=== PATIENT | female | born 1935 | race Caucasian/White ===

== ENCOUNTER 2016-08-06 12:05 | Outpatient (CLI) | payer MEDICARE, OTHER | END 2016-08-06 12:06 | disposition home or self-care (01) | DX: R05 Cough (principal) ==

== ENCOUNTER 2016-11-12 10:29 | Outpatient (CLI) | payer MEDICARE, OTHER | END 2016-11-12 10:30 | disposition home or self-care (01) | DX: I10 Essential (primary) hypertension (principal); E78.2 Mixed hyperlipidemia; Z79.899 Other long term (current) drug therapy ==

== ENCOUNTER 2016-11-23 10:55 | Outpatient (CLI) | payer MEDICARE, OTHER | END 2016-11-23 10:56 | disposition home or self-care (01) | DX: R91.1 Solitary pulmonary nodule (principal) ==

== ENCOUNTER 2017-01-10 11:18 | Outpatient (CLI) | payer MEDICARE, OTHER ==
--- NOTE | 2017-01-11 08:17 | Mammography Report ---
DIGITAL BILATERAL SCREENING MAMMOGRAM: 01/10/2017 CLINICAL HISTORY: An 81-year-old female in for routine screening mammogram. Patient has a family hi story of breast cancer. Her mother had breast cancer in her 70s. Her sister had breast cancer in he r 50s. Patient has had no prior breast surgeries. COMPARISON: 09/19/2014, 09/05/2013 TECHNIQUE: Craniocaudad and oblique lateral views of each breast were obtained with [facility] digital mammography. FINDINGS: Heterogeneously dense breasts are noted bilaterally. There is a cluster of calcifications noted in the 10 o'clock position of the right breast 7-8 cm superolateral to the nipple. This clust er of calcifications has shown progression in the number of calcifications and density of the calcifi cations since preceding exams. Recommend patient return for magnification craniocaudad and mediolate ral views of the right breast for further evaluation. There are few additional scattered calcificati ons noted in the breasts, some of which are clustered. These show no change and continue to have a b enign appearance. No significant masses are detected in the breasts. IMPRESSION: A SMALL CLUSTER OF CALCIFICATIONS IS ONCE AGAIN NOTED IN THE 10 O'CLOCK POSITION OF THE RIGHT BREAST. THIS HAS SHOWN PROGRESSION COMPARED TO PRECEDING EXAMS. RECOMMEND PATIENT RETURN F OR MAGNIFICATION VIEWS OF THE RIGHT BREAST FOR FURTHER EVALUATION. BIRADS CATEGORY 0 - INCOMPLETE. NEEDS ADDITIONAL IMAGING EVALUATION. MAGNIFICATION VIEWS OF THE RIG HT BREAST ARE INDICATED. STANDARD QUALIFYING STATEMENTS 1. This examination was reviewed with the aid of Computer-Aided Detection (CAD). 2. A negative or benign imaging report should not delay biopsy if clinically suspicious findings are present. Consider surgical consultation if warranted. More than 5% of cancers are not identified by maria e weathers. 3. Dense breasts may obscure an underlying neoplasm. JOB #: [id number] EXT JOB #:[id number]
== END 2017-01-10 11:19 | disposition home or self-care (01) ==
LOC: DI 11:18
PROVIDERS: ATTEND Internal Medicine
DX: Z12.31 Encounter for screening mammogram for malignant neoplasm of breast (principal); R92.1 Mammographic calcification found on diagnostic imaging of breast; Z80.3 Family history of malignant neoplasm of breast
CPT/HCPCS: 77067

== ENCOUNTER 2017-01-24 13:42 | Outpatient (CLI) | payer MEDICARE, OTHER ==
--- NOTE | 2017-01-24 15:49 | Mammography Report ---
DIGITAL DIAGNOSTIC RIGHT MAMMOGRAM: 01/24/2017 CLINICAL INDICATION: Possible increase in calcifications right upper outer quadrant. TECHNIQUE: Right true lateral and spot magnification views. FINDINGS: The right breast again demonstrates heterogeneously dense fibroglandular parenchyma. The c alcifications in question appear coarse and typically benign on spot magnification views. No associat ed mass is identified. IMPRESSION: PROBABLE BENIGN RIGHT BREAST CALCIFICATIONS. RECOMMENDATION: DIAGNOSTIC RIGHT MAMMOGRAM IN SIX MONTHS, TO ASSURE STABILITY. BIRADS CATEGORY 3-PROBABLE BENIGN FINDINGS. STANDARD QUALIFYING STATEMENTS 1. This examination was reviewed with the aid of Computer-Aided Detection (CAD). 2. A negative or benign imaging report should not delay biopsy if clinically suspicious findings are present. Consider surgical consultation if warranted. More than 5% of cancers are not identified by i maging. 3. Dense breasts may obscure an underlying neoplasm. JOB #: [id number] EXT JOB #:[id number]
== END 2017-01-24 13:43 | disposition home or self-care (01) ==
LOC: DI 13:42
PROVIDERS: ATTEND Internal Medicine
DX: R92.8 Other abnormal and inconclusive findings on diagnostic imaging of breast (principal); R92.1 Mammographic calcification found on diagnostic imaging of breast

== ENCOUNTER 2017-02-09 16:41 | Outpatient (CLI) | payer MEDICARE, OTHER ==
--- NOTE | 2017-02-10 19:20 | XRAY Report ---
LUMBAR SPINE COMPLETE, AP, LATERAL, OBLIQUES, CONED-DOWN LATERAL VIEW OF L5-S1: 02/09/2017 CLINICAL HISTORY: Patient has back pain with right leg pain. FINDINGS: Surgical clips are seen in the right upper quadrant of the abdomen. This is the result of a prior cholecystectomy. Mild vascular calcification is noted in the abdominal aorta. Five nonrib-bearing lumbar-type vertebrae are seen. Significant disk space narrowing is noted at L5-S1. This is indicative of degenerative disk disease. Minimal spondylolisthesis is noted of L4 in relationship to L5. This most likely is the result of osteoarthritis of the facet joints. Mild disk space narrowing is noted at L2-3 and L3-4. Significant osteoarthritis of the facet joints is seen at L3-4, L4-5, and at L5- S1. Left hip shows a moderate degree of joint space narrowing. Right hip shows mild joint space narrowing. IMPRESSION: 1. OSTEOARTHRITIS OF THE LUMBAR SPINE. MOST PRONOUNCED CHANGE IS SEEN AT L5- S1 WITH SIGNIFICANT DISK SPACE NARROWING. 2. MINIMAL SPONDYLOLISTHESIS IS NOTED AT L4-5 RELATED TO OSTEOARTHRITIS OF THE FACET JOINTS. 3. MODERATE DEGREE OF OSTEOARTHRITIS IS NOTED INVOLVING THE LEFT HIP. MILD OSTEOARTHRITIS IS SEEN INVOLVING THE RIGHT HIP. 4. SURGICAL CLIPS ARE SEEN IN THE RIGHT UPPER QUADRANT OF THE ABDOMEN RELATED TO PRIOR CHOLECYSTECTOMY. 5. SIGNIFICANT OSTEOARTHRITIS IS SEEN AT THE FACET JOINTS AT L3-4, L4-5, AND L5 -S1. JOB #: [id number] EXT JOB #: [id number]
== END 2017-02-09 16:42 | disposition home or self-care (01) ==
LOC: DI 16:41
PROVIDERS: ATTEND Internal Medicine
DX: M47.896 Other spondylosis, lumbar region (principal); M47.897 Other spondylosis, lumbosacral region; M43.16 Spondylolisthesis, lumbar region; M16.0 Bilateral primary osteoarthritis of hip
CPT/HCPCS: 72110

== ENCOUNTER 2017-03-26 20:03 | Emergency (ER) | payer MEDICARE, OTHER ==
[2017-03-26 20:13] VITALS: BP 155/75
--- NOTE | 2017-03-26 21:54 | ED Physician Documentation ---
PD HPI LOWER EXT INJURY - Stated complaint Stated Complaint: GLF - LEG PX - Chief complaint Chief Complaint: Ext Problem - History obtained from History obtained from: Patient - History of Present Illness PD HPI LOW EXT INJURY LOCATION: Right, Left, Lower leg Type of injury: Other (abrasions to the B LE) Timing - onset: How many days ago (2) Timing - duration: Days (2) Timing - details: Abrupt onset Pain level max: 4 Pain level now: 3 Improved by: Nothing Worsened by: Moving, Palpating Associated symptoms: Swelling, Other (no drainage). No: Weakness, Numbness, Tingling, Discolored Contributing factors: No: Anticoagulated Similar symptoms before: Has not had sx before Recently seen: Not recently seen Review of Systems Constitutional: denies: Fever, Chills Skin: denies: Rash Musculoskeletal: denies: Neck pain, Back pain Neurologic: denies: Headache PD PAST MEDICAL HISTORY - Past Medical History Past Medical History: Yes Cardiovascular: Hypertension, High cholesterol, Murmur, Other Respiratory: None HEENT: None - Present Medications Home Medications: Ambulatory Orders Medication Instructions Recorded Confirmed Atorvastatin Calcium 1 tab PO DAILY 03/26/17 03/26/17 Valsartan [Diovan] 1 tab PO DAILY 03/26/17 03/26/17 amLODIPine [Norvasc] 1 tab PO DAILY 03/26/17 03/26/17 - Allergies Allergies/Adverse Reactions: Allergies Allergy/AdvReac Type Severity Reaction Status Date / Time acetaminophen [From Vicodin] Allergy Nausea Verified 03/26/17 20:14 azithromycin Allergy Nausea Verified 03/26/17 20:14 codeine Allergy Unknown Verified 03/26/17 20:14 hydrocodone bitartrate * Allergy Nausea Verified 03/26/17 20:14 [From Vicodin] moxifloxacin HCl * Allergy Nausea Verified 03/26/17 20:14 [From Avelox] stimulants Allergy Unknown Uncoded 03/26/17 20:14 - Living Situation Living Situation: reports: With family Living Arrangement: reports: At home - Social History Does the pt have substance abuse?: No - Immunizations Immunizations are current?: Yes Immunizations: TDAP current <10years PD ED PE NORMAL - Vitals Vital signs reviewed: Yes - General General: Alert and oriented X 3, No acute distress - Derm Derm: Warm and dry - Extremities Extremities: Other (Abrasions present to the bilateral lower extremities. No evidence of infection. ) - Neuro Neuro: Alert and oriented X 3 - Psych Psych: Normal mood, Normal affect Results - Vitals Vitals: Vital Signs - 24 hr 03/26/17 20:09 Temperature 36.2 C L Heart Rate 83 Respiratory 16 Rate Blood Pressure 155/75 H O2 Saturation 97 Oxygen O2 Source Room air PD MEDICAL DECISION MAKING - ED course Complexity details: considered differential, d/w patient ED course: Patient is an 81-year-old female who presents to the emergency department with abrasions to the bilateral lower extremities. No evidence of infection. Wounds were cleansed and bandaged. We will continue supportive care and follow- up with her doctor. Patient counseled regarding signs and symptoms for which I believe and urgent re-evaluation would be necessary. Patient with good understanding of and agreement to plan and is comfortable going home at this time This document was made in part using voice recognition software. While efforts are made to proofread this document, sound alike and grammatical errors may occur. Departure - Departure Disposition: 01 Home, Self Care Clinical Impression: Abrasions of multiple sites Condition: Good Instructions: ED Abrasion Follow-Up: Daniel Kennedy MD [Primary Care Provider] - Within 1 week (for wound check) Comments: There doesn't appear to be any infection tonight. Return if you worsen. You can continue the antibiotic ointment at home. Discharge Date/Time: 03/26/17 22:07
== END 2017-03-26 22:07 | disposition home or self-care (01) ==
LOC: ED 20:03
DX: S80.812A Abrasion, left lower leg, initial encounter (principal); S80.811A Abrasion, right lower leg, initial encounter; W18.30XA Fall on same level, unspecified, initial encounter; I10 Essential (primary) hypertension
CPT/HCPCS: 99282; 99283

== ENCOUNTER 2017-04-30 09:38 | Outpatient (CLI) | payer MEDICARE, OTHER ==
--- NOTE | 2017-05-01 09:08 | MRI Report ---
EXAM: MRI LUMBAR SPINE WITHOUT CONTRAST EXAM DATE: 04/30/2017 11:05 AM. CLINICAL HISTORY: Worsening right thigh and leg pain. Low back pain. COMPARISON: No prior MRI. TECHNIQUE: Multiplanar, multisequence T1-weighted and fluid-sensitive sequences of the lumbar spine f rom T12 to S1 without contrast. Other: None. FINDINGS: Spinal Cord: The conus terminates at L1-L2. No signal abnormality in the visualized spinal cord. Alignment: Minimal degenerative subluxations including slight retrolisthesis of L2 on L3, minimal ant erolisthesis of L4 on L5 and slight retrolisthesis of L5 on S1. There is also a minimal leftward conv ex asymmetric mid to upper lumbar curve. No significant alignment change as compared to previous conv entional radiographs of the lumbar spine from 02/09/2017. Bone Marrow: Five ron-mvl-fwccctf lumbar vertebral bodies are assumed. Vertebral body heights are jenny ntained. No acute marrow edema. Mild degenerative endplate signal changes inferiorly at T11. Disk Levels/Facets: T12-L1: Unremarkable. L1-L2: Mild facet arthropathy. Otherwise unremarkable, no stenosis, disk herniation or significant di sk space narrowing. L2-L3: Mild degenerative disk disease and facet arthropathy. No focal disk extrusion or significant s tenosis. L3-L4: Mild degenerative disk disease. Shallow broad-based disk bulge. Patent central canal and left foramen. Minimal foraminal narrowing on the right without evidence for nerve root compression. L4-L5: Minimal to mild degenerative disk disease. Moderately prominent facet arthropathy. Shallow bro ad-based disk bulge. Minimal to mild subarticular zone stenosis on the right without nerve root compr ession. Patent foramina and central canal. L5-S1: Moderate degenerative disk disease. Mild facet arthropathy. Left subarticular zone moderate to marked stenosis from asymmetric left side disk herniation with accompanying osteophytic spurring. Mi ld posterior left S1 nerve root sleeve displacement without definite compression. Patent central lluvia l and right foramen. Moderate left foraminal stenosis. Musculature: Moderately prominent diffuse posterior paraspinal muscle fatty atrophy. Other: The visualized pelvic cavity is unremarkable. IMPRESSION: 1. Lumbar degenerative stenosis is most prominent at the L5-S1 level involving the left subarticular and left foraminal zones from a combination of facet arthropathy and asymmetric left posterior disk h erniation with osteophyte. 2. Additional chronic-appearing multilevel degenerative lumbar spine changes are present without othe r evidence for significant appearing stenosis or nerve root impingement. Comment: The following findings are so common in adults without low back pain that while we report th eir presence, they must be interpreted with caution and in the context of the clinical situation. (Re sulaiman Li et al, Spine 2001) Prevalence of findings in patients without low back pain: Disk degeneration (any evidence): 92% Disk desiccation/T2 signal loss: 83% Disk height loss: 56% Disk bulge: 64% Disk protrusion: 32% Annular tear/high intensity zone: 38% [facility] Referring Provider Line: [phone] SITE ID: [id number]
== END 2017-04-30 09:39 | disposition home or self-care (01) ==
LOC: DI 09:38
PROVIDERS: ATTEND Internal Medicine
DX: M51.36 Other intervertebral disc degeneration, lumbar region (principal); M47.896 Other spondylosis, lumbar region; M51.27 Other intervertebral disc displacement, lumbosacral region
CPT/HCPCS: 72148

== ENCOUNTER 2017-05-04 14:28 | Outpatient (CLI) | payer MEDICARE, OTHER ==
--- NOTE | 2017-05-05 08:52 | XRAY Report ---
RIGHT HIP AND PELVIS: 05/04/2017 CLINICAL INDICATION: Leg pain. FINDINGS: Frontal view of the hips and pelvis and frogleg lateral view of the right hip demonstrate mild osteoarthritis. There is no evidence of fracture or dislocation. No radiopaque foreign body is seen in the soft tissues. IMPRESSION: MILD OSTEOARTHRITIS. JOB #: [id number] EXT JOB #:[id number]
== END 2017-05-04 14:29 | disposition home or self-care (01) ==
LOC: DI.S 14:28
PROVIDERS: ATTEND Internal Medicine
DX: M16.11 Unilateral primary osteoarthritis, right hip (principal)

== ENCOUNTER 2017-08-18 09:42 | Outpatient (CLI) | payer MEDICARE, OTHER ==
--- NOTE | 2017-08-18 19:51 | Mammography Report ---
DATE OF SERVICE: 08/18/2017 DIGITAL DIAGNOSTIC RIGHT MAMMOGRAM: 08/18/2017 CLINICAL INDICATION: Followup calcifications. TECHNIQUE: Right CC, MLO, true lateral, spot magnification views. COMPARISON: 01/24/2017, 01/10/2017, 09/19/2014, 09/05/2013. The right breast again demonstrates heterogeneously dense fibroglandular parenchyma. The calcifications in question, in the right upper outer quadrant, have coarsened in the interval. No associated mass or architectural distortion is seen. IMPRESSION: Probable benign coarsening calcifications in the right upper outer quadrant. RECOMMENDATIONS: Diagnostic bilateral mammogram in 6 months. ACR BIRADS 3, probable benign findings. STANDARD QUALIFYING STATEMENTS 1. This examination was reviewed with the aid of Computed-Aided Detection (CAD). 2. A negative or benign imaging report should not delay biopsy if clinically suspicious findings are present. Consider surgical consultation if warranted. More than 5% of cancers are not identified by imaging. 3. Dense breasts may obscure an underlying neoplasm. TD: 08/18/2017 20:50
== END 2017-08-18 09:43 | disposition home or self-care (01) ==
LOC: DI 09:42
PROVIDERS: ATTEND Internal Medicine
DX: R92.1 Mammographic calcification found on diagnostic imaging of breast (principal)

== ENCOUNTER 2017-12-12 08:00 | Outpatient (CLI) | payer MEDICARE, OTHER ==
[2017-12-12 15:08] LABS: BASOPHILS % (AUTO) 0.4 %; EOSINOPHILS # (AUTO) 0.2 10^3/uL (0.0-0.7); EOSINOPHILS % (AUTO) 3.1 %; HGB - HEMOGLOBIN 12.7 g/dL (12.0-16.0); LYMPHOCYTES % (AUTO) 28.2 %; MEAN CORPUSCULAR HEMOGLOBIN 32.6 pg (27.0-31.0); MEAN CORPUSCULAR HGB CONC 33.7 g/dL (32.0-36.0); MEAN CORPUSCULAR VOLUME 96.7 fL (81.0-99.0); MEAN PLATELET VOLUME 7.9 fL (7.9-10.8); MONOCYTES # (AUTO) 0.5 10^3/uL (0.0-1.0); MONOCYTES % (AUTO) 7.3 %; NEUTROPHILS # (AUTO) 4.2 10^3/uL (1.5-6.6); PLT - PLATELET COUNT 329 10^3/uL (130-450); RED BLOOD COUNT 3.91 10^6/uL (4.20-5.40); RED CELL DISTRIBUTION WIDTH 13.5 % (12.0-15.0); WHITE BLOOD COUNT 6.9 x10^3/uL (4.8-10.8)
[2017-12-12 15:21] LABS: ALBUMIN 3.8 g/dL (3.2-5.5); ALBUMIN/GLOBULIN RATIO 1.1 (1.0-2.2); ALKALINE PHOSPHATASE 83 IU/L (42-121); ALT ALANINE AMINOTRANSFERASE 28 IU/L (10-60); AST ASPARTATE AMINOTRANSFERASE 25 IU/L (10-42); BILIRUBIN,TOTAL 0.4 mg/dL (0.2-1.0); BUN - BLOOD UREA NITROGEN 21 mg/dL (6-20); CARBON DIOXIDE - CO2 27 mmol/L (21-32); CHLORIDE 102 mmol/L (101-111); CHOL/HDL RATIO 2.9 (<4.4); CHOLESTEROL 183 mg/dL; CREATININE 0.5 mg/dL (0.4-1.0); GFR - MDRD 118 (>89); GLUCOSE 102 mg/dL (70-100); HDL CHOLESTEROL 63 mg/dL; LDL CHOLESTEROL,CALCULATED 103 mg/dL; LDL/HDL RATIO 1.6 (<4.4); SODIUM 136 mmol/L (135-145); TOTAL PROTEIN 7.2 g/dL (6.7-8.2); VLDL CHOLESTEROL 17 mg/dL
== END 2017-12-12 08:01 ==
LOC: LAB.R 08:00
PROVIDERS: ATTEND Internal Medicine
DX: E78.5 Hyperlipidemia, unspecified (principal); I10 Essential (primary) hypertension
CPT/HCPCS: 80053; 80061; 83721; 85025

== ENCOUNTER 2018-03-07 08:11 | Outpatient (CLI) | payer MEDICARE, OTHER | END 2018-03-07 08:12 | disposition home or self-care (01) | LOC: DI 08:11 | PROVIDERS: ATTEND Internal Medicine | DX: R07.89 Other chest pain (principal); R01.1 Cardiac murmur, unspecified; I44.7 Left bundle-branch block, unspecified | CPT/HCPCS: 93306 ==

== ENCOUNTER 2018-03-28 12:24 | Outpatient (CLI) | payer MEDICARE, OTHER ==
--- NOTE | 2018-03-28 14:51 | Mammography Report ---
Reason: ABN MAMMO Procedure Date: 03/28/2018 Accession Number: [id number] / [id number] Procedure: AYDIN - Diagnostic Dig Bilat CPT Code: FULL RESULT: EXAM: Diagnostic Dig Bilat DATE: 03/28/2018 1:40 PM CLINICAL HISTORY: Follow-up calcifications right breast. Left screening TECHNIQUE: Bilateral digital CC and MLO projections COMPARISON: 08/18/2017, 01/24/2017, 01/10/2017, 09/19/2014 and 09/05/2013 FINDINGS: The breast tissue is heterogeneously dense. The calcifications in the right breast have continued to increase in course and and may represent a calcifying fibroadenoma. On the left there is increasing scattered coarse calcifications. No dominant mass, skin thickening, or architectural distortion. IMPRESSION: Probably benign RECOMMENDATION: Follow-up bilateral mammography in 6 months. BIRADS CATEGORY 3: Probably benign STANDARD QUALIFYING STATEMENTS: 1. This examination was reviewed with the aid of Computer-Aided Detection (CAD). 2. A negative or benign imaging report should not delay biopsy if clinically suspicious findings are present. Consider surgical consultation if warrented. More than 5% of cancers are not identified by imaging. 3. Dense breasts may obscure an underlying neoplasm.
== END 2018-03-28 12:25 | disposition home or self-care (01) ==
LOC: DI 12:24
PROVIDERS: ATTEND Internal Medicine
DX: R92.1 Mammographic calcification found on diagnostic imaging of breast (principal)
CPT/HCPCS: 77066

== ENCOUNTER 2018-07-07 14:02 | Outpatient (CLI) | payer MEDICARE, OTHER ==
--- NOTE | 2018-07-10 19:00 | DEXA Report ---
Reason: POSTMENOPAUSAL Procedure Date: 07/07/2018 Accession Number: [id number] / [id number] Procedure: DEX - Dexa Spine and/or Hip CPT Code: FULL RESULT: EXAM: Dexa Spine and/or Hip DATE: 07/07/2018 2:21 PM CLINICAL HISTORY: POSTMENOPAUSAL TECHNIQUE: Dual energy x-ray absorptiometry (DXA) was performed on a [employer]iga[employer] System. Regions measured are the AP Spine, femoral neck, and if needed forearm. COMPARISON: None. In accordance with the International Society for Clinical Densitometry (ISCD) guidelines, data from previous exams may be reanalyzed using current recommendations and techniques. This is done to allow a more accurate basis for comparison with the current study. FINDINGS: The data for the lumbar spine is as follows: BMD (g/cm/cm) T-SCORE Z-SCORE REGION L1 1.015 -1.0 0.3 L2 1.131 -0.6 0.6 L3 1.305 0.9 2.1 L4 1.282 0.7 1.9 TOTAL 1.182 0.0 1.2 NOTE: All evaluable vertebrae are used for classification The data for the hip is as follows: BMD (g/cm/cm) T-SCORE Z-SCORE REGION Neck 0.792 -1.8 0.0 TOTAL 0.849 -1.3 0.4 NOTE: The femoral neck or total proximal femur, whichever is lowest, is used for classification. IMPRESSION: THE WHO CLASSIFICATION BASED ON THE INTERNATIONAL REFERENCE STANDARD IS OSTEOPENIA. THE FRACTURE RISK IS INCREASED. RECOMMENDATION: Patients with diagnosis of osteoporosis or osteopenia should have regular bone mineral density assessment. For those eligible for Medicare, routine testing is allowed once every 2 years. Testing frequency can be increased for patients who have rapidly progressing disease or for those who are receiving medical therapy to restore bone mass. COMMENT: World Health Organization (WHO) definitions for osteoporosis and osteopenia: NORMAL BMD: T-score at -1.0 or higher, fracture risk is low OSTEOPENIA BMD: T-score between -1.0 and -2.5, fracture risk is increased. OSTEOPOROSIS BMD: T-score at -2.5 or lower, fracture risk is high. National Osteoporosis Foundation recommends: 1. Obtain adequate dietary calcium (at least 1200 mg per day) and vitamin D (400-800 international units per day). 2. Participate, as appropriate, in regular weightbearing and muscle-strengthening exercise. 3. Avoid tobacco use and reduce alcohol and caffeine intake. 4. For more detailed information see the website at www.NOF.org.
== END 2018-07-07 14:03 | disposition home or self-care (01) ==
LOC: DI 14:02
PROVIDERS: ATTEND Internal Medicine
DX: M85.88 Other specified disorders of bone density and structure, other site (principal)
CPT/HCPCS: 77080

== ENCOUNTER 2018-10-24 09:43 | Outpatient (CLI) | payer MEDICARE, OTHER ==
--- NOTE | 2018-10-24 10:54 | Mammography Report ---
Reason: ABNORMAL MAMMOGRAM Procedure Date: 10/24/2018 Accession Number: [id number] / [id number] Procedure: AYDIN - Diagnostic Dig Bilat CPT Code: FULL RESULT: EXAM: Diagnostic Dig Bilat DATE: 10/24/2018 10:42 AM CLINICAL HISTORY: Surveillance of right breast calcifications. No reported personal history of breast cancer. Family history breast cancer mother age 80 and sister age 65. TECHNIQUE: (B) - Bilateral Bilateral CC and MLO views were obtained. Additional coned magnified CC and ML views right upper outer breast. Bilateral 90 degree 2-D 3-D. COMPARISON: 03/28/2018 through 09/05/2013 FINDINGS: Right breast: There is a stable 10 mm grouping of early popcorn type calcification in the 9:00 breast posterior middle depth representing finding under surveillance. There has been little interval change since 2017 and finding is similar to other calcifications in the contralateral breast. Otherwise, there are no suspicious masses, calcifications or areas of distortion. Left breast: Stable central benign popcorn type calcification. Stable oval mass with calcification in the medial breast consistent with degenerating fibroadenoma. No suspicious masses, microcalcifications, or areas of architectural distortion are identified. PARENCHYMAL PATTERN: (D) - The breasts demonstrate heterogeneously dense fibroglandular parenchyma bilaterally. 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 Benign. BI-RADS Category 2. Recommend return to annual screening mammography. Left breast: Benign. BI-RADS Category 2. Recommend annual screening mammography. RECOMMENDATION: (ANNUAL) - Recommend routine annual screening mammography. BI-RADS CATEGORY: (2) - Benign Findings STANDARD QUALIFYING STATEMENTS: 1. This examination was not reviewed with the aid of Computer-Aided Detection (CAD). 2. A negative or benign imaging report should not preclude biopsy if clinically suspicious findings are present. 3. Dense breasts may obscure an underlying neoplasm. 4. This examination was reviewed with the aid of 3D breast imaging (tomosynthesis).
== END 2018-10-24 09:44 | disposition home or self-care (01) ==
LOC: DI 09:43
PROVIDERS: ATTEND Family Medicine
DX: R92.1 Mammographic calcification found on diagnostic imaging of breast (principal)
CPT/HCPCS: 77066

== ENCOUNTER 2019-01-23 08:20 | Outpatient (CLI) | payer MEDICARE, OTHER ==
[2019-01-23 10:58] LABS: BASOPHILS % (AUTO) 0.5 %; EOSINOPHILS # (AUTO) 0.2 10^3/uL (0.0-0.7); EOSINOPHILS % (AUTO) 3.2 %; HGB - HEMOGLOBIN 12.6 g/dL (12.0-16.0); LYMPHOCYTES # (AUTO) 1.7 10^3/uL (1.5-3.5); LYMPHOCYTES % (AUTO) 26.4 %; MEAN CORPUSCULAR HEMOGLOBIN 32.5 pg (27.0-31.0); MEAN CORPUSCULAR HGB CONC 32.6 g/dL (32.0-36.0); MEAN CORPUSCULAR VOLUME 99.7 fL (81.0-99.0); MEAN PLATELET VOLUME 9.6 fL (7.9-10.8); MONOCYTES # (AUTO) 0.5 10^3/uL (0.0-1.0); MONOCYTES % (AUTO) 6.9 %; NEUTROPHILS # (AUTO) 4.1 10^3/uL (1.5-6.6); NEUTROPHILS % (AUTO) 62.7 %; PLT - PLATELET COUNT 334 10^3/uL (130-450); RED BLOOD COUNT 3.88 10^6/uL (4.20-5.40); RED CELL DISTRIBUTION WIDTH 12.9 % (12.0-15.0); WHITE BLOOD COUNT 6.6 x10^3/uL (4.8-10.8)
[2019-01-23 11:16] LABS: ALBUMIN 3.8 g/dL (3.2-5.5); ALBUMIN/GLOBULIN RATIO 1.1 (1.0-2.2); ALKALINE PHOSPHATASE 68 IU/L (42-121); ALT ALANINE AMINOTRANSFERASE 23 IU/L (10-60); AST ASPARTATE AMINOTRANSFERASE 24 IU/L (10-42); BILIRUBIN,TOTAL 0.6 mg/dL (0.2-1.0); BUN - BLOOD UREA NITROGEN 13 mg/dL (6-20); CALCIUM 9.3 mg/dL (8.5-10.3); CARBON DIOXIDE - CO2 27 mmol/L (21-32); CHLORIDE 103 mmol/L (101-111); CHOL/HDL RATIO 3.3 (<4.4); CHOLESTEROL 202 mg/dL; CREATININE 0.5 mg/dL (0.4-1.0); GFR - MDRD 118 (>89); GLUCOSE 98 mg/dL (70-100); HDL CHOLESTEROL 61 mg/dL; LDL CHOLESTEROL,CALCULATED 110 mg/dL; LDL/HDL RATIO 1.8 (<4.4); SODIUM 140 mmol/L (135-145); TOTAL PROTEIN 7.2 g/dL (6.7-8.2); VLDL CHOLESTEROL 31 mg/dL
[2019-01-23 11:24] LABS: HB2 TOTAL 13.6 g/dL; HEMOGLOBIN A1C 0.51 g/dL; HEMOGLOBIN A1C % 5.6 % (4.6-6.2)
== END 2019-01-23 08:21 | disposition home or self-care (01) ==
LOC: LAB.S 08:20
PROVIDERS: ATTEND Family Medicine
DX: E78.5 Hyperlipidemia, unspecified (principal); I10 Essential (primary) hypertension
CPT/HCPCS: 36415; 80053; 80061; 83036; 83721; 84443; 85025

== ENCOUNTER 2019-12-22 09:59 | Emergency (ER) | payer MEDICARE, OTHER ==
--- NOTE | 2019-12-22 10:05 | ED Physician Documentation ---
PD HPI ABD PAIN - Stated complaint Stated Complaint: L RIGHT ABD PAIN - History obtained from History obtained from: Patient - History of Present Illness Timing - onset: How many days ago (few) Timing - duration: Days (few) Timing - details: Gradual onset (had been working in garden/lifting the day prior but no injury at that time. Onset pain gradual with worsening on movement and bending. Not completely relieved with rest.), Still present Quality: Aching, Stabbing, Pain Location: RLQ Radiation: Right flank Improved by: Laying still. No: Eating Worsened by: Moving, Position. No: Eating, Breathing, Palpation Associated symptoms: No: Fever, Nausea, Vomiting, Diarrhea, Constipation, Dysuria, Hematuria, Vaginal bleeding Similar symptoms before: Has not had sx before Recently seen: Not recently seen Review of Systems Constitutional: denies: Fever, Chills, Myalgias Nose: denies: Rhinorrhea / runny nose, Congestion Throat: denies: Sore throat Respiratory: denies: Cough GI: reports: Abdominal Pain. denies: Abdominal Swelling, Nausea, Vomiting, Constipation, Diarrhea : denies: Dysuria, Frequency, Hematuria, Discharge, Vaginal bleeding Skin: denies: Rash, Lesions Musculoskeletal: denies: Neck pain PD PAST MEDICAL HISTORY - Past Medical History Cardiovascular: Hypertension, High cholesterol, Murmur, Other Respiratory: None HEENT: None - Present Medications Home Medications: Ambulatory Orders Medication Instructions Recorded Confirmed Atorvastatin Calcium 1 tab PO DAILY 03/26/17 03/26/17 Valsartan [Diovan] 1 tab PO DAILY 03/26/17 03/26/17 amLODIPine [Norvasc] 1 tab PO DAILY 03/26/17 03/26/17 Aspirin Chewable [[place]ari 81 mg PO DAILY 12/22/19 12/22/19 Aspirin] Docusate Sodium 100 mg PO DAILY #20 capsule 12/22/19 Irbesartan 300 mg ORAL DAILY 12/22/19 12/22/19 Naproxen 375 mg PO BID #20 tablet 12/22/19 Ondansetron Odt [Zofran] 4 mg TL Q6H PRN #10 tablet 12/22/19 Oxycodone HCl/Acetaminophen 1 each PO Q6H PRN #10 tablet 12/22/19 [Percocet 5-325 mg Tablet] - Allergies Allergies/Adverse Reactions: Allergies Allergy/AdvReac Type Severity Reaction Status Date / Time acetaminophen [From Vicodin] Allergy Nausea Verified 12/22/19 10:23 azithromycin Allergy Nausea Verified 12/22/19 10:23 codeine Allergy Unknown Verified 12/22/19 10:23 hydrocodone bitartrate * Allergy Nausea Verified 12/22/19 10:23 [From Vicodin] moxifloxacin HCl * Allergy Nausea Verified 12/22/19 10:23 [From Avelox] stimulants Allergy Unknown Uncoded 12/22/19 10:23 - Social History Does the pt have substance abuse?: No - Immunizations Immunizations are current?: Yes Immunizations: TDAP current <10years PD ED PE NORMAL - Vitals Vital signs reviewed: Yes - General General: Alert and oriented X 3, No acute distress, Well developed/nourished - HEENT HEENT: Moist mucous membranes, Pharynx benign - Neck Neck: Supple, no meningeal sign, No adenopathy - Cardiac Cardiac: RRR, No murmur - Respiratory Respiratory: Clear bilaterally - Abdomen Abdomen: Normal bowel sounds, Soft, Non distended, No organomegaly, Other (tender RLQ and right lateral abd without percussion/rebound nor guarding. No rash nor redness. Not tender in vertebral area but some right CVA area. No hernias felt inguinal nor umbilical. ) - Female Female : Deferred - Rectal Rectal: Deferred - Back Back: No spinal TTP - Derm Derm: Normal color, Warm and dry - Extremities Extremities: No tenderness to palpate, Normal ROM s pain, No edema, No calf tenderness / cord - Neuro Neuro: Alert and oriented X 3, No motor deficit, Normal speech Results - Vitals Vitals: Oxygen O2 Source Room air - Labs Labs: Laboratory Tests 12/22/19 12/22/19 12/22/19 10:15 10:15 10:15 WBC 7.2 RBC 3.93 L Hgb 12.6 Hct 39.7 MCV 101.0 H MCH 32.1 H MCHC 31.7 L RDW 12.4 Plt Count 319 MPV 9.3 Neut # (Auto) 4.7 Lymph # (Auto) 1.8 [place] # (Auto) 0.5 Eos # (Auto) 0.1 Baso # (Auto) 0.0 Absolute Nucleated RBC 0.00 Nucleated RBC % 0.0 Sodium 138 Potassium 3.7 Chloride 102 Carbon Dioxide 27 Anion Gap 9.0 BUN 14 Creatinine 0.6 Estimated GFR (MDRD) 95 Glucose 104 H Calcium 9.6 Total Bilirubin 0.7 AST 21 ALT 24 Alkaline Phosphatase 78 Total Protein 7.5 Albumin 4.0 Globulin 3.5 Albumin/Globulin Ratio 1.1 Lipase 33 Urine Color YELLOW Urine Clarity CLEAR Urine pH 7.5 Ur Specific [place] 1.010 Urine Protein NEGATIVE Urine Glucose (UA) NEGATIVE Urine Ketones NEGATIVE Urine Occult Blood NEGATIVE Urine Nitrite NEGATIVE Urine Bilirubin NEGATIVE Urine Urobilinogen 0.2 (NORMAL) Ur Leukocyte Esterase NEGATIVE Ur Microscopic Review NOT INDICATED Urine Culture Comments NOT INDICATED - Rads (name of study) abd CT Radiology: Prelim report reviewed (normal appendix, no ureteral stones and normal kidneys. 3 cm cyst right ovary without free fluid - recommends U/S to better eval. ), See rad report limited pelvic U/S Radiology: Prelim report reviewed (normal flow to right ovary. No free fluid. 3 cm complex cyst right ovary; recommends 3 month repeat exam. ), See rad report PD MEDICAL DECISION MAKING - ED course Complexity details: considered differential (not clear the cause of the pain. She had been doing garden work and lifting the day prior so could be muscular pain. No rash of skin. CT and then US did not show acute cause. The ovarian cyst does not appear like it would be causing pain. Needs follow up. ), d/w patient Departure - Departure Disposition: 01 Home, Self Care Clinical Impression: Ovarian cyst, right, Abdominal pain of unknown etiology Condition: Stable Record reviewed to determine appropriate education?: Yes Instructions: ED Abdominal Pain Unkn Cause Follow-Up: Wild Canales MD [Primary Care Provider] - Prescriptions: Docusate Sodium 100 mg PO DAILY #20 capsule Naproxen 375 mg PO BID #20 tablet Ondansetron Odt [Zofran] 4 mg TL Q6H PRN #10 tablet PRN Reason: Nausea / Vomiting Oxycodone HCl/Acetaminophen [Percocet 5-325 mg Tablet] 1 each PO Q6H PRN #10 tablet PRN Reason: pain Comments: Stay well hydrated. Continue usual medications. This seems likely to be muscular pain on the side although there will be consideration of some inflammatory diverticulitis. No evidence for infectious diverticulitis based on your CT report and your appendix is normal as well and there is no kidney stones. They did find a cyst on your ovary which appears like a cyst on ultrasound and the recommendation is a repeat ultrasound imaging in 3 months to ensure its not changing or enlarging. This should be done through your primary care. For now have you take naproxen anti-inflammatory twice daily for the next week or so with food. To that add Tylenol if needed for pain or pain medicine for worse pain. Also use ondansetron if needed for nausea. Take docusate stool softener daily for the next week or 2 to ensure soft stools. Discharge Date/Time: 12/22/19 16:05
[2019-12-22 10:23] LABS: BILIRUBIN,URINE NEGATIVE (NEGATIVE); GLUCOSE, URINE (UA) NEGATIVE (NEGATIVE); KETONES,URINE (UA) NEGATIVE (NEGATIVE); LEUKOCYTE ESTERASE, URINE NEGATIVE (NEGATIVE); NITRITE,URINE NEGATIVE (NEGATIVE); OCCULT BLOOD,URINE NEGATIVE (NEGATIVE); PH,URINE 7.5 PH (5.0-7.5); PROTEIN,URINE NEGATIVE (NEGATIVE); UROBILINOGEN,URINE 0.2 (NORMAL) E.U./dL (NORMAL)
[2019-12-22 10:28] LABS: BASOPHILS % (AUTO) 0.3 %; EOSINOPHILS # (AUTO) 0.1 10^3/uL (0.0-0.7); EOSINOPHILS % (AUTO) 1.9 %; HGB - HEMOGLOBIN 12.6 g/dL (12.0-16.0); LYMPHOCYTES # (AUTO) 1.8 10^3/uL (1.5-3.5); LYMPHOCYTES % (AUTO) 24.6 %; MEAN CORPUSCULAR HEMOGLOBIN 32.1 pg (27.0-31.0); MEAN CORPUSCULAR HGB CONC 31.7 g/dL (32.0-36.0); MEAN PLATELET VOLUME 9.3 fL (7.9-10.8); MONOCYTES # (AUTO) 0.5 10^3/uL (0.0-1.0); MONOCYTES % (AUTO) 7.2 %; NEUTROPHILS # (AUTO) 4.7 10^3/uL (1.5-6.6); NEUTROPHILS % (AUTO) 65.7 %; PLT - PLATELET COUNT 319 10^3/uL (130-450); RED BLOOD COUNT 3.93 10^6/uL (4.20-5.40); RED CELL DISTRIBUTION WIDTH 12.4 % (12.0-15.0); WHITE BLOOD COUNT 7.2 x10^3/uL (4.8-10.8)
[2019-12-22 10:30] LABS: CLARITY,URINE CLEAR (CLEAR)
[2019-12-22 10:40] LABS: ALBUMIN/GLOBULIN RATIO 1.1 (1.0-2.2); BILIRUBIN,TOTAL 0.7 mg/dL (0.2-1.0); CALCIUM 9.6 mg/dL (8.5-10.3); CREATININE 0.6 mg/dL (0.4-1.0); TOTAL PROTEIN 7.5 g/dL (6.7-8.2)
[2019-12-22] MEDS ORDERED: ONDANSETRON 4 MG/2 ML VIAL IVP STA (10:47)
[2019-12-22] MEDS ORDERED: KETOROLAC 30 MG/ML VIAL IVP STA (10:47)
[2019-12-22] MEDS ORDERED: SODIUM CHLORIDE 0.9% 1,000 ML IV STA (10:47)
[2019-12-22] MEDS ORDERED: IOVERSOL 320 100 ML VIAL IVP ONE ×2 (11:00→11:25)
--- NOTE | 2019-12-22 12:27 | CT Report ---
Reason: RLQ abd pain x 2 days Procedure Date: 12/22/2019 Accession Number: [id number] / [id number] Procedure: CT - Abdomen/Pelvis W CPT Code: Final Report FULL RESULT: EXAM: CT ABDOMEN AND PELVIS EXAM DATE: 12/22/2019 11:23 AM. CLINICAL HISTORY: RLQ abd pain x 2 days. COMPARISONS: None. TECHNIQUE: Routine helical CT imaging was performed through the abdomen and pelvis. IV contrast: 100 cc Optiray 320. Enteric contrast: No. Reconstructions: Coronal and sagittal. In accordance with CT protocol optimization, one or more of the following dose reduction techniques were utilized for this exam: automated exposure control, adjustment of mA and/or KV based on patient size, or use of iterative reconstructive technique. FINDINGS: Lung Bases: Unremarkable. Liver: No focal liver lesion. Mild intrahepatic biliary dilatation. Gallbladder/Bile Ducts: Cholecystectomy. Common bile duct size is in the normal range. Spleen: Normal. Pancreas: Normal. Adrenal Glands: Normal. Kidneys: No convincing solid mass. No hydronephrosis. No renal calculi are evident. Exophytic 23 mm probable left upper pole renal cortical cyst; no imaging follow-up is recommended per consensus recommendations based on imaging criteria. Peritoneal Cavity/Bowel: No free air or free fluid. Pancolonic diverticulosis. No focal evidence of acute diverticulitis. No obstruction. The appendix is well visualized and normal. Pelvic Organs: Asymmetric prominence of the right ovary measuring 34 x 31 mm (3/62). Uterus, left adnexal structures unremarkable. Vasculature: Mild scattered aortoiliac atheromatous calcifications. No aneurysm. Bones: No acute fracture or suspicious bony lesion. Multilevel lumbar degeneration. Other: None. IMPRESSION: 1. No definite acute abdominopelvic findings. 2. Pancolonic diverticulosis without focal evidence of acute diverticulitis. Appendix is normal. 3. Abnormal asymmetric enlargement of the right ovary measuring up to 34 mm. Recommend correlation with pelvic ultrasound. 4. Cholecystectomy. 5. Other findings as noted above. [facility]
[2019-12-22] MEDS ORDERED: HYDROmorphone 1 MG/ML CARPUJECT IVP STA ×2 (12:56→15:18)
--- NOTE | 2019-12-22 15:16 | Ultrasound Report ---
Reason: abd pain Procedure Date: 12/22/2019 Accession Number: [id number] / [id number] Procedure: US - Pelvic w/Transvag+Doppler Comp CPT Code: Final Report FULL RESULT: EXAM: PELVIC ULTRASOUND WITH DOPPLERS CLINICAL HISTORY: Right lower abdominal pain for 2 days, sharp pain. COMPARISON: ABDOMEN/PELVIS W 12/22/2019 11:11 AM TECHNIQUE: Realtime transabdominal imaging performed to identify the uterus and adnexa and as an overview of other pelvic structures, followed by transvaginal imaging for better assessment of the endometrium and adnexa, with static image documentation. Color flow imaging and Doppler spectral analysis was performed to evaluate blood flow to the ovaries given pelvic pain and clinical concern for ovarian torsion. FINDINGS: Uterus: 5.2 x 2 x 3.2 cm, volume 20 cc. Anteverted position. Size within normal limits. Mildly heterogeneous. Masses: None. Endometrium: 1 mm. No increased vascularity. Trace fluid versus focal cyst present within endometrial cavity measuring 0.3 cm. Cervix: Nabothian cysts. Right Ovary: 3.3 x 2.4 x 3.1 cm, volume 12.7 cc. Normal echotexture. Within the right ovary is a mildly complex cystic 2.5 x 1.9 x 2.6 cm lesion with echogenic nodular component measuring 0.5 x 0.5 cm, avascular. Thin septation noted. Arterial and venous blood flow present. PSV 4.4 cm/sec. RI 0.7. Adnexa are unremarkable. Left Ovary: Left ovary is not visualized either transabdominally or endovaginally. Adnexa are unremarkable. Free Fluid: None. Other: None. IMPRESSION: 1. Normal uterine volume. 2. Endometrial thickness measured 1 mm. Small volume of endometrial fluid versus small endometrial cyst measuring 0.3 cm. No solid endometrial masses are identified. 3. Right ovarian mildly complex 2.6 cm cyst containing an echogenic avascular 0.5 cm nodule and thin septation. Due to the size and appearance of the right ovarian lesion follow-up pelvic ultrasound in 3 months is recommended for reassessment. No pelvic free fluid. 4. Arterial and venous blood flow are present in the right ovary. No sonographic evidence of torsion. 5. Left ovary is not visualized. RADIA
[2019-12-22 16:00] VITALS: BP 151/76
== END 2019-12-22 16:05 | disposition home or self-care (01) ==
LOC: ED 09:59
DX: R10.31 Right lower quadrant pain (principal); N83.201 Unspecified ovarian cyst, right side; I10 Essential (primary) hypertension
CPT/HCPCS: 36415; 74177; 76830; 76856; 80053; 81003; 83690; 85025; 93975; 99284; J1170; Q9967; 81001; 87086

== ENCOUNTER 2020-03-22 10:13 | Outpatient (CLI) | payer MEDICARE, OTHER ==
[2020-03-22 13:19] LABS: BASOPHILS % (AUTO) 0.5 %; EOSINOPHILS # (AUTO) 0.2 10^3/uL (0.0-0.7); EOSINOPHILS % (AUTO) 2.4 %; HGB - HEMOGLOBIN 12.3 g/dL (12.0-16.0); LYMPHOCYTES # (AUTO) 1.7 10^3/uL (1.5-3.5); LYMPHOCYTES % (AUTO) 22.8 %; MEAN CORPUSCULAR HEMOGLOBIN 31.6 pg (27.0-31.0); MEAN CORPUSCULAR VOLUME 102.1 fL (81.0-99.0); MEAN PLATELET VOLUME 9.5 fL (7.9-10.8); MONOCYTES # (AUTO) 0.6 10^3/uL (0.0-1.0); MONOCYTES % (AUTO) 7.6 %; NEUTROPHILS % (AUTO) 66.4 %; PLT - PLATELET COUNT 369 10^3/uL (130-450); RED BLOOD COUNT 3.89 10^6/uL (4.20-5.40); RED CELL DISTRIBUTION WIDTH 13.7 % (12.0-15.0); WHITE BLOOD COUNT 7.5 x10^3/uL (4.8-10.8)
[2020-03-22 13:42] LABS: ALBUMIN/GLOBULIN RATIO 1.3 (1.0-2.2); ALKALINE PHOSPHATASE 92 IU/L (42-121); ALT ALANINE AMINOTRANSFERASE 27 IU/L (10-60); AST ASPARTATE AMINOTRANSFERASE 23 IU/L (10-42); BILIRUBIN,TOTAL 0.8 mg/dL (0.2-1.0); BUN - BLOOD UREA NITROGEN 19 mg/dL (6-20); CALCIUM 9.4 mg/dL (8.5-10.3); CARBON DIOXIDE - CO2 27 mmol/L (21-32); CHLORIDE 104 mmol/L (101-111); CHOL/HDL RATIO 2.8 (<4.4); CHOLESTEROL 192 mg/dL; CREATININE 0.6 mg/dL (0.4-1.0); GLUCOSE 95 mg/dL (70-100); HDL CHOLESTEROL 69 mg/dL; LDL CHOLESTEROL,CALCULATED 108 mg/dL; LDL/HDL RATIO 1.6 (<4.4); SODIUM 136 mmol/L (135-145); TOTAL PROTEIN 7.2 g/dL (6.7-8.2); VLDL CHOLESTEROL 15 mg/dL
[2020-03-22 14:37] LABS: HEMOGLOBIN A1c% 5.5 % (4.27-6.07)
== END 2020-03-22 10:14 | disposition home or self-care (01) ==
LOC: LAB.S 10:13
PROVIDERS: ATTEND Family Medicine
DX: R73.9 Hyperglycemia, unspecified (principal); L40.9 Psoriasis, unspecified; R07.89 Other chest pain; E78.5 Hyperlipidemia, unspecified; I10 Essential (primary) hypertension; M17.9 Osteoarthritis of knee, unspecified
CPT/HCPCS: 36415; 80053; 80061; 83036; 83721; 84443; 85025

== ENCOUNTER 2020-04-15 15:00 | Outpatient (CLI) | payer MEDICARE, OTHER ==
--- NOTE | 2020-04-16 10:53 | Ultrasound Report ---
PROCEDURE: Pelvic w/Transvaginal INDICATIONS: OVARIAN FIBROMA TECHNIQUE: Real-time scanning was performed of the pelvic organs, with image documentation. Additional endovagi nal scanning was necessary due to incomplete visualization of the adnexal and endometrial structures by transabdominal scanning. COMPARISON: CT and ultrasound 12/22/2019 FINDINGS: Transabdominal scanning: Limited scanning through the kidneys shows no hydronephrosis. A 2.5 cm cyst arises from the upper pole of the left kidney. No pathologic free abdominal or pelvic fluid. Endovaginal scanning: Uterus: Uterus is anteverted and normal in size at 5.8 x 1.9 x 3.8 cm. The endometrium measures 0.8 mm in combined thickness. There are tiny nabothian cysts in the cervix and in the lower uterine segm ent endometrium. Ovaries: The right ovary measures 3.5 x 2.6 x 3.7 cm and contains an irregular, likely involuting cy st with peripheral calcifications measuring 3.0 x 2.2 x 2.6 cm. No suspicious vascularity in the righ t ovary. There is a coarse ovarian calcification. The left ovary was not identified. IMPRESSION: 1. Slight increase in size in the right ovarian cyst though its internal architecture appears fairly stable. No suspicious vascularity. Follow-up in 6-12 months is recommended. 2. Normal, age-appropriate uterus. 3. Nonvisualized left ovary. Reviewed by: Selam Aaron MD on 04/16/2020 9:52 AM [facility] Approved by: Selam Aaron MD on 04/16/2020 9:52 AM [facility] Station ID: [id number]
== END 2020-04-15 15:01 | disposition home or self-care (01) ==
LOC: DI 15:00
PROVIDERS: ATTEND Family Medicine
DX: N83.201 Unspecified ovarian cyst, right side (principal)
CPT/HCPCS: 76830; 76856

== ENCOUNTER 2020-05-12 14:06 | Outpatient (CLI) | payer MEDICARE, OTHER ==
--- NOTE | 2020-05-13 16:44 | Mammography Report ---
BILATERAL DIGITAL SCREENING MAMMOGRAM 3D/2D: 05/12/2020 CLINICAL: Routine screening. Comparison is made to exams dated: 10/24/2018 mammogram, 03/28/2018 mammogram, 01/24/2017 mammogram, 2017 mammogram, and 01/10/2017 mammogram - [facility]. The tissue of both breasts i s heterogeneously dense. This may lower the sensitivity of mammography. There are benign calcifications in both breasts. No significant masses, calcifications, or other findings are seen in either breast. There has been no significant interval change. IMPRESSION: BENIGN There is no mammographic evidence of malignancy. A 1 year screening mammogram is recommended. This exam was interpreted at Station ID: [id number]. NOTE: For mammograms, a report in lay terms will be sent to the patient. Approximately 15% of breast malignancies will not be visualized mammographically. In the management of a palpable breast mass, a negative mammogram must not discourage biopsy of a clinically suspicious lesion. Electronically Signed By: Koko salmeron/silvino:05/12/2020 17:02:09 ACR BI-RADS Category 2: Benign Finding(s) 3342F PARENCHYMAL PATTERN: (D) - The breast(s) demonstrate(s) heterogeneously dense fibroglandular janae hammer. BI-RADS CATEGORY: (2) - 2 RECOMMENDATION: (ANNUAL) - Recommend routine annual screening mammography. [id number] 1 year screening LATERALITY: (B)
== END 2020-05-12 14:07 | disposition home or self-care (01) ==
LOC: DI 14:06
PROVIDERS: ATTEND Family Medicine
DX: Z12.31 Encounter for screening mammogram for malignant neoplasm of breast (principal)
CPT/HCPCS: 77063; 77067

== ENCOUNTER 2020-06-30 17:23 | Outpatient (CLI) | payer MEDICARE, OTHER ==
--- NOTE | 2020-06-30 17:47 | XRAY Report ---
PROCEDURE: Shoulder 3 View RT INDICATIONS: SHOULDER JOINT PAIN, RIGHT TECHNIQUE: 4 views of the shoulder were acquired. COMPARISON: None. FINDINGS: Bones: Suture anchor is noted in right humeral head consistent with prior rotator cuff tendon repair . Mild to moderate acromioclavicular joint and glenohumeral joint osteoarthritic changes are seen. No fractures or dislocations. No suspicious bony lesions. Visualized ribs appear intact. Soft tissues: No suspicious soft tissue calcifications. IMPRESSION: No acute right shoulder fracture or dislocation. Shoulder joint osteoarthritis. Reviewed by: Bj Brand MD on 06/30/2020 4:46 PM [facility] Approved by: Bj Brand MD on 06/30/2020 4:46 PM [facility] Station ID: [id number]
== END 2020-06-30 23:59 | disposition home or self-care (01) ==
LOC: DI.S 17:23
PROVIDERS: ATTEND Physician Assistant Medical
DX: M19.011 Primary osteoarthritis, right shoulder (principal)

== ENCOUNTER 2020-12-18 14:44 | Outpatient (CLI) | payer MEDICARE, OTHER ==
--- NOTE | 2020-12-18 16:05 | CT Report ---
PROCEDURE: CHEST WO INDICATIONS: HX OF SMOKING TECHNIQUE: Noncontrast 5 mm thick sections acquired from the pulmonary apices to the posterior costophrenic angl es. 7 mm thick coronal and sagittal MIP reformats were then acquired. For radiation dose reduction, the following was used: automated exposure control, adjustment of mA and/or kV according to patient size. COMPARISON: Nov [address] examination FINDINGS: Image quality: Excellent. Lungs and pleura: No acute air space opacities. Lingular scarring is present, as before. Calcified granuloma within the right upper lobe posterolaterally. Noncalcified 4 mm nodule within the superior segment right lower lobe (series 4 image 104) is unchanged. Ill-defined groundglass nodules within th e right upper lobe laterally measuring 7 mm (series 4 image 71) and 5 mm (series 4 image 72) are not changed. No pleural effusions or pneumothorax. Central and peripheral airways are patent and normal in caliber. Mediastinum: Heart size is normal. No pericardial effusion. No mediastinal adenopathy by size crit eria. Thoracic aorta and central pulmonary arteries are normal in size. Esophagus is normal in katerina martine. No hiatal hernia. Bones and chest wall: No suspicious bony lesions. No vertebral body compression fractures. No axil cade or supraclavicular adenopathy by size criteria. The thyroid is normal in size and there are no incidental findings. Abdomen: Visualized upper abdominal solid organs and bowel loops appear normal in the absence of con trast. IMPRESSION: 1. No change in right lung nodules. 2. No new pulmonary nodules. 3. Remote granulomatous disease. CLINICAL RECOMMENDATION STATEMENTS: In patients <35 years with an ITN detected on CT, MRI, or extrathyroidal ultrasound, the Committee re commends further evaluation with dedicated thyroid ultrasound if the nodule is ?1 cm and has no suspi cious imaging features, and if the patient has normal life expectancy. In patients ?35 years with an ITN detected on CT, MRI, or extrathyroidal ultrasound, the Committee re commends further evaluation with dedicated thyroid ultrasound if the nodule is ?1.5 cm and has no liza picious imaging features, and if the patient has normal life expectancy. (ACR, 2014) Reviewed by: Mouna Gibbs MD on 12/18/2020 4:04 PM PDT Approved by: Mouna Gibbs MD on 12/18/2020 4:04 PM PDT Station ID: [id number]
--- NOTE | 2020-12-18 16:45 | Ultrasound Report ---
PROCEDURE: Pelvic w/Transvaginal INDICATIONS: RT OVARIAN CYST TECHNIQUE: Real-time scanning was performed of the pelvic organs, with image documentation. Additional endovagi nal scanning was necessary due to incomplete visualization of the adnexal and endometrial structures by transabdominal scanning. COMPARISON: Pelvic ultrasound 04/15/2020, 12/22/2019 FINDINGS: No pathologic free abdominal or pelvic fluid. Uterus: Uterus is normal in size at 4.9 x 2.1 x 3.8 cm. The endometrium measures 3 mm in combined t hickness. Ovaries: Right ovary measures are 4 x 3.0 x 2.4 cm, volume 12.8 cc. Focus of heterogeneous echogenic ity is identified measuring 3.2 x 2.3 x 2.0 cm. It previously measured 3.0 x 2.2 x 2.6 cm. There is a focus of increased echogenicity within this region measuring approximately 4 mm. Left ovary is not v isualized. IMPRESSION: 1. Complex right ovarian cyst with calcification. Overall size is relatively unchanged compared to pr ior exam. Recommend correlation to patient history and 6 month interval follow-up is recommended to d ocument stability and exclude cystic neoplasm. Reviewed by: Chanelle Wiggins MD on 12/18/2020 4:44 PM PDT Approved by: Chanelle Wiggins MD on 12/18/2020 4:44 PM PDT Station ID: [id number]
== END 2020-12-18 14:45 | disposition home or self-care (01) ==
LOC: DI 14:44
PROVIDERS: ATTEND Internal Medicine
DX: Z12.2 Encounter for screening for malignant neoplasm of respiratory organs (principal); Z87.891 Personal history of nicotine dependence; J84.10 Pulmonary fibrosis, unspecified; R19.8 Other specified symptoms and signs involving the digestive system and abdomen; N83.201 Unspecified ovarian cyst, right side

== ENCOUNTER 2020-12-24 11:10 | Outpatient (CLI) | payer MEDICARE, OTHER | END 2020-12-24 23:59 | disposition home or self-care (01) | LOC: COV 11:10 | PROVIDERS: ATTEND Surgery | DX: Z01.812 Encounter for preprocedural laboratory examination (principal); M19.012 Primary osteoarthritis, left shoulder; Z20.822 Contact with and (suspected) exposure to COVID-19 ==

== ENCOUNTER 2021-04-24 09:14 | Outpatient (CLI) | payer MEDICARE, OTHER ==
[2021-04-24 14:47] LABS: ALBUMIN 3.9 g/dL (3.2-5.5); ALBUMIN/GLOBULIN RATIO 1.1 (1.0-2.2); ALKALINE PHOSPHATASE 93 IU/L (42-121); ALT ALANINE AMINOTRANSFERASE 21 IU/L (10-60); AST ASPARTATE AMINOTRANSFERASE 19 IU/L (10-42); BILIRUBIN,TOTAL 0.7 mg/dL (0.2-1.0); BUN - BLOOD UREA NITROGEN 18 mg/dL (6-20); CALCIUM 10.1 mg/dL (8.5-10.3); CARBON DIOXIDE - CO2 30 mmol/L (21-32); CHLORIDE 104 mmol/L (101-111); CHOL/HDL RATIO 2.9 (<4.4); CHOLESTEROL 170 mg/dL; CREATININE 0.6 mg/dL (0.4-1.0); GFR - MDRD 95 (>89); GLUCOSE 98 mg/dL (70-100); HDL CHOLESTEROL 59 mg/dL; LDL CHOLESTEROL,CALCULATED 95 mg/dL; LDL/HDL RATIO 1.6 (<4.4); POTASSIUM 4.2 mmol/L (3.5-5.0); SODIUM 141 mmol/L (135-145); TOTAL PROTEIN 7.5 g/dL (6.7-8.2); TRIGLYCERIDES 78 mg/dL; VLDL CHOLESTEROL 16 mg/dL
[2021-04-24 14:52] LABS: BASOPHILS % (AUTO) 0.4 %; EOSINOPHILS # (AUTO) 0.1 10^3/uL (0.0-0.7); EOSINOPHILS % (AUTO) 1.9 %; HCT - HEMATOCRIT 39.2 % (37.0-47.0); HGB - HEMOGLOBIN 12.2 g/dL (12.0-16.0); LYMPHOCYTES # (AUTO) 1.8 10^3/uL (1.5-3.5); LYMPHOCYTES % (AUTO) 24.4 %; MEAN CORPUSCULAR HEMOGLOBIN 31.2 pg (27.0-31.0); MEAN CORPUSCULAR HGB CONC 31.1 g/dL (32.0-36.0); MEAN CORPUSCULAR VOLUME 100.3 fL (81.0-99.0); MEAN PLATELET VOLUME 9.5 fL (7.9-10.8); MONOCYTES # (AUTO) 0.5 10^3/uL (0.0-1.0); MONOCYTES % (AUTO) 7.2 %; NEUTROPHILS # (AUTO) 4.9 10^3/uL (1.5-6.6); PLT - PLATELET COUNT 375 10^3/uL (130-450); RED BLOOD COUNT 3.91 10^6/uL (4.20-5.40); RED CELL DISTRIBUTION WIDTH 13.3 % (12.0-15.0); WHITE BLOOD COUNT 7.5 x10^3/uL (4.8-10.8)
== END 2021-04-24 09:15 | disposition home or self-care (01) ==
LOC: LAB.S 09:14
PROVIDERS: ATTEND Internal Medicine
DX: I10 Essential (primary) hypertension (principal); Z13.6 Encounter for screening for cardiovascular disorders; Z79.899 Other long term (current) drug therapy; E78.5 Hyperlipidemia, unspecified; N83.209 Unspecified ovarian cyst, unspecified side
CPT/HCPCS: 36415; 80053; 80061; 83721; 84443; 85025

== ENCOUNTER 2021-06-01 13:49 | Outpatient (CLI) | payer MEDICARE, OTHER ==
--- NOTE | 2021-06-01 17:16 | Ultrasound Report ---
PROCEDURE: Pelvic w/Transvaginal INDICATIONS: OVARIAN CYST TECHNIQUE: Real-time scanning was performed of the pelvic organs, with image documentation. Additional endovagi nal scanning was necessary due to incomplete visualization of the adnexal and endometrial structures by transabdominal scanning. COMPARISON: Ultrasound dated 12/18/2020, ultrasound dated 12/22/2019 FINDINGS: No pathologic free abdominal or pelvic fluid. Uterus: Uterus is normal in size at 6.5 x 1.7 x 3.6 cm. The endometrium measures 1-2 mm in combined thickness. Ovaries: Right ovary measures 3.3 x 2.6 x 2.7 cm, volume 10.4. Left ovary not well visualized sonogr aphically, in part due to shadowing bowel. There is complex right ovarian cystic lesion measuring 2.3 x 2.1 x 2.2 cm. There is associated intraluminal nodularity measuring up to 6 mm. Nonspecific 3 mm r ight ovarian calcification IMPRESSION: Complex right ovarian cystic lesion with associated nodularity as before, with grossly similar appear ance. At this time, still cannot exclude ovarian cystic neoplasm. Please correlate clinically and if necessary with CA-125. Further evaluation with laparoscopy could be performed based on high clinical suspicion, versus continued ultrasound surveillance to demonstrate long-term stability. Reviewed by: Mikel Ma MD on 06/01/2021 5:14 PM PST Approved by: Mikel Ma MD on 06/01/2021 5:14 PM PST Station ID: [id number]
== END 2021-06-01 13:50 | disposition home or self-care (01) ==
LOC: DI 13:49
PROVIDERS: ATTEND Internal Medicine
DX: R93.89 Abnormal findings on diagnostic imaging of other specified body structures (principal); Z78.0 Asymptomatic menopausal state; M85.88 Other specified disorders of bone density and structure, other site

== ENCOUNTER 2021-06-01 13:49 | Outpatient (CLI) | payer MEDICARE, OTHER ==
--- NOTE | 2021-06-01 17:02 | DEXA Report ---
PROCEDURE: Dexa Spine and/or Hip INDICATIONS: POST MENOPAUSAL TECHNIQUE: Dual energy x-ray absorptiometry (DXA) was performed on a [employer] System. Regions measur ed are the AP Spine, femoral neck, and if needed forearm. COMPARISON: None. FINDINGS: Lumbar Spine: Bone Mineral Density 1.175 g/cm/cm,T score 0.0, normal Left Femoral Neck: Bone Mineral Density 0.738 g/cm/cm, T score -2.2, osteopenia (T score greater or equal to -1.0: NORMAL) (T score from -1.1 to -2.4: OSTEOPENIA) (T score less than or equal to -2.5 to: OSTEOPOROSIS) Impression: Osteopenia Patients with diagnosis of osteoporosis or osteopenia should have regular bone mineral density assess ment. For those eligible for Medicare, routine testing is allowed once every 2 years. Testing frequ ency can be increased for patients who have rapidly progressing disease or for those who are receivin g medical therapy to restore bone mass. Reviewed by: Mikel Ma MD on 06/01/2021 5:00 PM PST Approved by: Mikel Ma MD on 06/01/2021 5:00 PM PST Station ID: [id number]
== END 2021-06-01 13:50 | disposition home or self-care (01) ==
LOC: DI 13:49
PROVIDERS: ATTEND Internal Medicine
DX: Z78.0 Asymptomatic menopausal state (principal); M85.88 Other specified disorders of bone density and structure, other site

== ENCOUNTER 2021-07-02 11:12 | Outpatient (CLI) | payer MEDICARE, OTHER | END 2021-07-02 11:13 | disposition home or self-care (01) | LOC: LAB 11:12 | PROVIDERS: ATTEND Obstetrics & Gynecology | DX: R19.09 Other intra-abdominal and pelvic swelling, mass and lump (principal) | CPT/HCPCS: 36415; 86304 ==

== ENCOUNTER 2021-11-19 12:42 | Outpatient (CLI) | payer MEDICARE, OTHER ==
--- NOTE | 2021-11-19 15:36 | CT Report ---
PROCEDURE: CHEST WO INDICATIONS: OVARIAN MASS TECHNIQUE: Noncontrast 1mm axial images were acquired from the pulmonary apices to the posterior costophrenic an gles. Axial 5 mm soft tissue kernel reconstructions were performed as well as 8 mm axial MIP and cor onal and sagittal 5 mm reformations. For radiation dose reduction, the following was used: automate d exposure control, adjustment of mA and/or kV according to patient size. COMPARISON: CT chest 12/18/2020, 11/23/2016. FINDINGS: Image quality: Excellent. Lungs and pleura: A few pulmonary nodules. For example: -Right upper lobe groundglass 0.5 cm, (4/55), unchanged since 2017. -Right lung base 0.2 cm, (4/223), new. Resolved pulmonary nodule in the left upper lobe seen on prior CT 12/18/2020 (4/109). Several calcifie d granuloma. Lingular and left upper lobe atelectasis. No pleural effusions or pneumothorax. Central and peripheral airways are patent and normal in caliber. Mediastinum: Heart size is normal. Mild aortic valvular calcification. No pericardial effusion. No mediastinal adenopathy by size criteria. Thoracic aorta and central pulmonary arteries are normal i n size. Esophagus is normal in caliber. No hiatal hernia. Bones and chest wall: Right shoulder arthroplasty. No suspicious bony lesions. No vertebral body co mpression fractures. No axillary or supraclavicular adenopathy by size criteria. The thyroid is nor mal in size and there are no incidental findings. Abdomen: Visualized upper abdominal solid organs and bowel loops appear normal in the absence of con trast. Left renal low-density cyst. IMPRESSION: 1. Right upper lobe ground glass pulmonary nodule measuring 0.5 cm is unchanged since 2017. Suggestin g a benign or indolent etiology. 2. A few additional small pulmonary nodules measuring 0.4 cm or less. A nodule at the right lung base measuring 0.2 cm appears to be new. Several benign calcified granuloma. 3. No adenopathy identified. Reviewed by: Dhaval Cool MD on 11/19/2021 3:35 PM PDT Approved by: Dhaval Cool MD on 11/19/2021 3:35 PM PDT Station ID: [id number]
== END 2021-11-19 12:43 | disposition home or self-care (01) ==
LOC: DI 12:42
PROVIDERS: ATTEND Internal Medicine
DX: R07.9 Chest pain, unspecified (principal); R91.8 Other nonspecific abnormal finding of lung field

== ENCOUNTER 2021-11-19 12:42 | Outpatient (CLI) | payer MEDICARE, OTHER ==
--- NOTE | 2021-11-19 15:19 | Ultrasound Report ---
PROCEDURE: Pelvic w/Transvaginal INDICATIONS: OVARIAN MASS TECHNIQUE: Real-time scanning was performed of the pelvic organs, with image documentation. Additional endovagi nal scanning was necessary due to incomplete visualization of the adnexal and endometrial structures by transabdominal scanning. COMPARISON: Ultrasound dated 12/18/2020, ultrasound dated 12/22/2019 FINDINGS: No pathologic free abdominal or pelvic fluid. Uterus: Uterus is normal in size. The endometrium measures 2-3 mm in combined thickness. Ovaries: Right ovary measures 2.2 x 2.9 x 3.0 cm, volume 10.0 mL. There is complex right ovarian cyst ic lesion measuring 2.9 x 2.2 x 2.2 cm. There is associated intraluminal nodularity measuring up to 6 mm. This is non-vascular. Nonspecific 3 mm right ovarian calcification again noted. Left ovary not v isualized sonographically. IMPRESSION: Complex right ovarian cystic lesion with associated nodularity is not significantly changed from 06/01 or 12/18/2020. Reviewed by: Kosta Clarke MD on 11/19/2021 3:18 PM PDT Approved by: Kosta Clarke MD on 11/19/2021 3:18 PM PDT Station ID: [id number]
== END 2021-11-19 12:43 | disposition home or self-care (01) ==
LOC: DI 12:42
PROVIDERS: ATTEND Obstetrics & Gynecology
DX: N83.291 Other ovarian cyst, right side (principal); R07.9 Chest pain, unspecified; R91.8 Other nonspecific abnormal finding of lung field

== ENCOUNTER 2021-11-27 09:58 | Outpatient (CLI) | payer MEDICARE, OTHER | END 2021-11-27 09:59 | disposition home or self-care (01) | LOC: LAB.S 09:58 | PROVIDERS: ATTEND Obstetrics & Gynecology | DX: N83.9 Noninflammatory disorder of ovary, fallopian tube and broad ligament, unspecified (principal) | CPT/HCPCS: 36415; 86304 ==

== ENCOUNTER 2021-12-28 10:02 | Outpatient (CLI) | payer MEDICARE, OTHER ==
--- NOTE | 2022-01-01 15:03 | Mammography Report ---
BILATERAL DIGITAL SCREENING MAMMOGRAM 3D/2D: 12/28/2021 CLINICAL: Routine screening. Family history of breast cancer. Comparison is made to exams dated: 05/12/2020 mammogram, 10/24/2018 mammogram, 03/28/2018 mammogram, 08/26 mammogram, 01/10/2017 mammogram, and 08/18/2017 mammogram - [facility]. The t issue of both breasts is heterogeneously dense. This may lower the sensitivity of mammography. There are benign calcifications in both breasts. No significant masses, calcifications, or other findings are seen in either breast. There has been no significant interval change. IMPRESSION: BENIGN There is no mammographic evidence of malignancy. A 1 year screening mammogram is recommended. This exam was interpreted at Station ID: [id number]. NOTE: For mammograms, a report in lay terms will be sent to the patient. Approximately 15% of breast malignancies will not be visualized mammographically. In the management of a palpable breast mass, a negative mammogram must not discourage biopsy of a clinically suspicious lesion. Electronically Signed By: Dhaval Cool M.D. [facility] [place]:12/31/2021 08:56:33 ACR BI-RADS Category 2: Benign Finding(s) 3342F PARENCHYMAL PATTERN: (D) - The breast(s) demonstrate(s) heterogeneously dense fibroglandular janae hammer. BI-RADS CATEGORY: (2) - 2 RECOMMENDATION: (ANNUAL) - Recommend routine annual screening mammography. [id number] 1 year screening LATERALITY: (B)
== END 2021-12-28 10:03 | disposition home or self-care (01) ==
LOC: DI.S 10:02
PROVIDERS: ATTEND Internal Medicine
DX: Z12.31 Encounter for screening mammogram for malignant neoplasm of breast (principal); Z80.3 Family history of malignant neoplasm of breast

== ENCOUNTER 2022-05-10 09:32 | Outpatient (CLI) | payer MEDICARE, OTHER | END 2022-05-10 09:33 | disposition home or self-care (01) | LOC: LAB.S 09:32 | PROVIDERS: ATTEND Obstetrics & Gynecology | DX: N83.291 Other ovarian cyst, right side (principal) | CPT/HCPCS: 36415; 86304 ==

== ENCOUNTER 2022-12-29 09:56 | Outpatient (CLI) | payer MEDICARE, OTHER ==
--- NOTE | 2022-12-30 09:20 | Mammography Report ---
BILATERAL DIGITAL SCREENING MAMMOGRAM 3D/2D WITH EXAGGERATED CC: 12/29/2022 CLINICAL: Routine screening. Family history of breast cancer. Comparison is made to exams dated: 12/28/2021 mammogram, 05/12/2020 mammogram, and 10/24/2018 mammogram - [facility]. Both breasts are heterogeneously dense, which may obscure small masses (category c / 51-75% glandular tissue). There are benign calcifications in both breasts. No significant masses, calcifications, or other findings are seen in either breast. There has been no significant interval change. IMPRESSION: BENIGN There is no mammographic evidence of malignancy. A 1 year screening mammogram is recommended. This exam was interpreted at Station ID: [id number]. NOTE: For mammograms, a report in lay terms will be sent to the patient. Approximately 15% of breast malignancies will not be visualized mammographically. In the management of a palpable breast mass, a negative mammogram must not discourage biopsy of a clinically suspicious lesion. Electronically Signed By: Benoit Thompson M.D. at/silvino:12/29/2022 11:02:16 letter sent: No_Letter ACR BI-RADS Category 2: Benign Finding(s) 3342F PARENCHYMAL PATTERN: (D) - The breast(s) demonstrate(s) heterogeneously dense fibroglandular janae hammer. BI-RADS CATEGORY: (2) - 2 Mammogram [id number] 1 year screening LATERALITY: (B)
== END 2022-12-29 09:57 | disposition home or self-care (01) ==
LOC: DI.S 09:56
PROVIDERS: ATTEND Obstetrics & Gynecology
DX: Z12.31 Encounter for screening mammogram for malignant neoplasm of breast (principal)

== ENCOUNTER 2023-08-04 10:45 | Outpatient (CLI) | payer MEDICARE, OTHER ==
[2023-08-04 14:52] LABS: BASOPHILS % (AUTO) 0.5 %; EOSINOPHILS # (AUTO) 0.2 10^3/uL (0.0-0.7); HCT - HEMATOCRIT 37.8 % (37.0-47.0); HGB - HEMOGLOBIN 11.5 g/dL (12.0-16.0); LYMPHOCYTES # (AUTO) 1.8 10^3/uL (1.5-3.5); LYMPHOCYTES % (AUTO) 22.4 %; MEAN CORPUSCULAR HGB CONC 30.4 g/dL (32.0-36.0); MEAN CORPUSCULAR VOLUME 101.9 fL (81.0-99.0); MEAN PLATELET VOLUME 9.1 fL (7.9-10.8); MONOCYTES # (AUTO) 0.6 10^3/uL (0.0-1.0); MONOCYTES % (AUTO) 6.9 %; NEUTROPHILS # (AUTO) 5.4 10^3/uL (1.5-6.6); NEUTROPHILS % (AUTO) 67.8 %; PLT - PLATELET COUNT 392 10^3/uL (130-450); RED BLOOD COUNT 3.71 10^6/uL (4.20-5.40); RED CELL DISTRIBUTION WIDTH 13.2 % (12.0-15.0); WHITE BLOOD COUNT 7.9 x10^3/uL (4.8-10.8)
[2023-08-04 15:38] LABS: THYROID STIMULATING HORMONE 1.14 uIU/mL (0.34-5.60)
[2023-08-04 15:39] LABS: ALBUMIN 3.9 g/dL (3.2-5.5); ALBUMIN/GLOBULIN RATIO 1.3 (1.0-2.2); ALKALINE PHOSPHATASE 100 IU/L (42-121); ALT ALANINE AMINOTRANSFERASE 19 IU/L (10-60); AST ASPARTATE AMINOTRANSFERASE 18 IU/L (10-42); BILIRUBIN,TOTAL 0.4 mg/dL (0.2-1.0); BUN - BLOOD UREA NITROGEN 20 mg/dL (6-20); CALCIUM 9.7 mg/dL (8.5-10.3); CARBON DIOXIDE - CO2 30 mmol/L (21-32); CHLORIDE 107 mmol/L (101-111); CHOL/HDL RATIO 2.9 (<4.4); CHOLESTEROL 213 mg/dL; CK- CREATINE KINASE 48 IU/L (30-223); CREATININE 0.6 mg/dL (0.6-1.3); GFR - MDRD 95 (>89); GLUCOSE 92 mg/dL (74-104); HDL CHOLESTEROL 74 mg/dL; LDL CHOLESTEROL,CALCULATED 120 mg/dL; LDL/HDL RATIO 1.6 (<4.4); POTASSIUM 4.4 mmol/L (3.5-4.5); SODIUM 140 mmol/L (135-145); TRIGLYCERIDES 93 mg/dL (48-352); VLDL CHOLESTEROL 19 mg/dL
== END 2023-08-04 10:46 | disposition home or self-care (01) ==
LOC: LAB.S 10:45
PROVIDERS: ATTEND Internal Medicine
DX: Z00.00 Encounter for general adult medical examination without abnormal findings (principal); H35.30 Unspecified macular degeneration; M53.3 Sacrococcygeal disorders, not elsewhere classified; E78.5 Hyperlipidemia, unspecified; I10 Essential (primary) hypertension; M54.50 Low back pain, unspecified; M25.551 Pain in right hip; Z86.16 Personal history of COVID-19; M25.519 Pain in unspecified shoulder; L98.9 Disorder of the skin and subcutaneous tissue, unspecified; R35.0 Frequency of micturition
CPT/HCPCS: 36415; 80053; 80061; 82550; 83721; 84443; 85025

== ENCOUNTER 2024-01-02 08:50 | Outpatient (CLI) | payer MEDICARE, OTHER ==
--- NOTE | 2024-01-03 10:55 | Mammography Report ---
BILATERAL DIGITAL SCREENING MAMMOGRAM 3D/2D: 01/02/2024 CLINICAL: Routine screening. Family history of breast cancer. Comparison is made to exams dated: 12/29/2022 mammogram, 12/28/2021 mammogram, and 05/12/2020 mammogram - [facility]. Both breasts are heterogeneously dense, which may obscure small masses (category c / 51-75% glandular tissue). There are benign calcifications in both breasts. No significant masses, calcifications, or other findings are seen in either breast. There has been no significant interval change. IMPRESSION: BENIGN There is no mammographic evidence of malignancy. A 1 year screening mammogram is recommended. This exam was interpreted at Station ID: [id number]. NOTE: For mammograms, a report in lay terms will be sent to the patient. Approximately 15% of breast malignancies will not be visualized mammographically. In the management of a palpable breast mass, a negative mammogram must not discourage biopsy of a clinically suspicious lesion. Electronically Signed By: Pam castro/silvino:01/02/2024 13:27:05 letter sent: No_Letter ACR BI-RADS Category 2: Benign Finding(s) 3342F PARENCHYMAL PATTERN: (D) - The breast(s) demonstrate(s) heterogeneously dense fibroglandular janae hammer. BI-RADS CATEGORY: (2) - 2 RECOMMENDATION: (ANNUAL) - Recommend routine annual screening mammography. [id number] 1 year screening LATERALITY: (B)
== END 2024-01-02 08:51 | disposition home or self-care (01) ==
LOC: DI.S 08:50
PROVIDERS: ATTEND Internal Medicine
DX: Z12.31 Encounter for screening mammogram for malignant neoplasm of breast (principal); R92.333 Mammographic heterogeneous density, bilateral breasts; Z80.3 Family history of malignant neoplasm of breast

== ENCOUNTER 2024-04-17 11:26 | Outpatient (CLI) | payer MEDICARE, OTHER ==
--- NOTE | 2024-04-17 14:18 | Ultrasound Report ---
PROCEDURE: Pelvic w/Transvaginal INDICATIONS: OVARIAN CYST TECHNIQUE: Real-time scanning was performed of the pelvic organs, with image documentation. Additional endovagi nal scanning was necessary due to incomplete visualization of the adnexal and endometrial structures by transabdominal scanning. COMPARISON: 05/09/2022. FINDINGS: Uterus: Uterus is anteverted and normal in size at 4.5 x 1.9 x 2.9 cm. The myometrium is homogeneou s. The endometrium measures 2.3 mm in combined thickness. Ovaries: The right ovary measures 3.3 x 2.4 x 3.2 cm, with a calculated ovarian volume of 13.3 cc. The left ovary is not identified, possibly secondary to involutional change. Again noted is a small r ight ovarian cyst measuring 2.7 x 1.8 x 2.8 cm. On the most recent previous study it measured 3.1 x 2 .2 x 2.5 cm. Other: No pathologic free abdominal or pelvic fluid. IMPRESSION: There is a small right ovarian cyst and a postmenopausal female who is 88 years old. The cyst is stab le, and has a maximum measurement of less than 3.0 cm. Comment: Current recommendations are that no further scheduled imaging follow-up is required of cysti c adnexal lesions less than 3.0 cm in postmenopausal females. Reviewed by: Maciej Noriega MD on 04/17/2024 2:16 PM PDT Approved by: Maciej Noriega MD on 04/17/2024 2:16 PM PDT Station ID: [id number]
== END 2024-04-17 11:27 | disposition home or self-care (01) ==
LOC: DI 11:26
PROVIDERS: ATTEND Obstetrics & Gynecology
DX: N83.291 Other ovarian cyst, right side (principal)